=== PATIENT | female | born 1970 | race Caucasian/White ===

== ENCOUNTER 2020-10-26 16:24 | Emergency (ER) | payer OTHER, BC ==
[~2020-10-26] VITALS: Ht 160 cm; Wt 79.8 kg
[2020-10-26 16:38] VITALS: BP 116/66; Ht 160 cm; Wt 79.8 kg
== END 2020-10-26 20:27 | disposition home or self-care (01) ==
LOC: ED 16:24
DX: S16.1XXA Strain of muscle, fascia and tendon at neck level, initial encounter (principal); S49.92XA Unspecified injury of left shoulder and upper arm, initial encounter; Z88.0 Allergy status to penicillin; V49.09XA Driver injured in collision with other motor vehicles in nontraffic accident, initial encounter; Y93.I9 Activity, other involving external motion; Y92.413 State road as the place of occurrence of the external cause; Y99.8 Other external cause status

== ENCOUNTER 2020-12-18 12:11 | Emergency (ER) | payer BC ==
[~2020-12-18] VITALS: Ht 157.5 cm; Wt 77.1 kg
[2020-12-18 12:19] VITALS: Ht 157.5 cm; Wt 77.1 kg
[2020-12-18 14:09] LABS: BASOPHIL % 0.7 % (0.2-1.3); PLATELET COUNT 232 x10^3mcL (179-408); RED CELL DISTRIBUTION WIDTH 13.3 % (12.3-17.7)
[2020-12-18 14:34] LABS: CALCIUM 9.5 mg/dL (8.5-10.1); CARBON DIOXIDE 29.7 mmol/L (21-32); CHLORIDE SERUM 103 mmol/L (98-107); CREATININE SERUM 0.8 mg/dL (0.6-1.0); GFR1 > 60 mL/min; GLUCOSE SERUM 98 mg/dL (74-106); SODIUM SERUM 139 mmol/L (136-145)
[2020-12-18 14:44] LABS: ALBUMIN 3.4 g/dL (3.4-5.0); ALKALINE PHOSPHATASE 104 U/L (46-116); ALT/SGPT 43 U/L (14-59); AST/SGOT 34 U/L (15-37); BILIRUBIN TOTAL 0.3 mg/dL (0.20-1.00); LIPASE 110 IU/L (73-393); TOTAL PROTEIN, SERUM 7.5 g/dL (6.4-8.2)
[2020-12-18] MEDS ORDERED: ACETAMINOPHEN-H1 TA1 PO (15:16)
[2020-12-18 15:51] VITALS: BP 112/62
== END 2020-12-18 15:52 | disposition home or self-care (01) ==
LOC: ED 12:11
PROVIDERS: Emergency Medicine
DX: K80.50 Calculus of bile duct without cholangitis or cholecystitis without obstruction (principal); Z88.0 Allergy status to penicillin
CPT/HCPCS: J1885